=== PATIENT | male | born 1960 | race Caucasian/White ===

== ENCOUNTER 2022-09-11 13:17 | Emergency (ER) | payer OTHER ==
[~2022-09-11] VITALS: Ht 165.1 cm; Wt 70.0 kg
[2022-09-11 14:53] LABS: Basophils # (auto) 0 10 ^3/uL (0-0.2); Basophils % (auto) 0.3 % (0.0-2.0); Eosinophils # (auto) 0 10 ^3/uL (0-0.8); Hematocrit 42.6 % (41.0-53.0); Hemoglobin 15.3 g/dL (13.5-17.5); Lymphocytes # (auto) 1.6 10 ^3/uL (0.4-5.4); Lymphocytes % (auto) 14.9 % (10.0-50.0); Mean Corpuscular Hemoglobin 33.5 pg (28.0-32.0); Mean Corpuscular Hgb Conc. 35.8 g/dL (32.0-36.0); Mean Corpuscular Volume 93.5 fL (80.0-100.0); Monocytes % (auto) 9.5 % (0.0-12.0); Neutrophils # (auto) 8.1 10 ^3/uL (1.6-8.6); Neutrophils % (auto) 75.3 % (37.0-80.0); Nucleated Red Blood Cells % 0.1 %; Red Blood Cells 4.55 10^6/uL (4.5-5.90); Red Cell Distribution Width 13.1 % (11.8-14.3); White Blood Cell 10.8 10^3/uL (4.4-10.8)
[2022-09-11 14:57] LABS: Albumin 3.8 g/dL (3.4-5.0); Calcium 8.8 mg/dL (8.5-10.1); Magnesium 2.3 mg/dL (1.6-2.6)
[2022-09-11 15:01] LABS: BUN/Creatinine Ratio 17.4; Bilirubin, Total 0.8 mg/dL (0.2-1.0); Total Protein 7.5 g/dL (6.4-8.2)
[2022-09-11 17:14] VITALS: BP 125/85
== END 2022-09-11 17:30 | disposition home or self-care (01) ==
LOC: EDBD 13:17 → ER 13:17
DX: J02.9 Acute pharyngitis, unspecified (principal); I48.91 Unspecified atrial fibrillation; Z79.899 Other long term (current) drug therapy
CPT/HCPCS: 36415; 71045; 80053; 83735; 83880; 84484; 85025; 85379; 93005

== ENCOUNTER → 2024-04-12 | Day surgery (SDC) | payer OTHER ==
[~2024-04-12] VITALS: Ht 165.1 cm; Wt 71.7 kg
[~2024-04-12] MED LIST: AMIO200T33 PO; APIX5TAB PO; ASPI-543 PO; ATOR40TA52 PO; LEVO125T PO; LIDOCAINE VISCOUS 2% 15ML UD PO ONE; MIDAZOLAM HCL 2MG/2ML 2ml VIAL (1mg/ml) IV ONE; PANT40T PO; diphenhdrAMINE HCL 50 MG/1 ML VL IV ONE; fentaNYL CITRATE 100 MCG/2 ML VL IV ONE
--- NOTE | 2024-04-14 17:52 | ECG ---
[facility] Test Date: 2024-04-12 Test Time: 10:06:58 Pat Name: SHAWNA PEREZ Department: Room: Gender: M Gis Scientist: Amos CHILDRESS RN : [id number] Requested By: GA RAM Order Number: [id number] Reading MD: Fany Black Measurements Intervals [place] Rate: 52 P: 82 [place]: 252 QRS: 64 QRSD: 86 T: 88 QT: 464 QTc: 431 Interpretive Statements Sinus bradycardia with 1st degree AV block Cannot rule out Inferior infarct , age undetermined Electronically Signed On 04-15-2024 16:32:34 PDT by Fany Black Please click the below link to view image of tracing.
== END | disposition home or self-care (01) ==
LOC: CATH 09:42
PROVIDERS: ATTEND Internal Medicine
DX: I48.91 Unspecified atrial fibrillation (principal); Z53.8 Procedure and treatment not carried out for other reasons; I49.9 Cardiac arrhythmia, unspecified; E03.9 Hypothyroidism, unspecified; Z79.899 Other long term (current) drug therapy; Z95.5 Presence of coronary angioplasty implant and graft; Z82.49 Family history of ischemic heart disease and other diseases of the circulatory system
CPT/HCPCS: 93005